=== PATIENT | female | born 1955 | race Caucasian/White ===

== ENCOUNTER → 2016-11-15 | Outpatient (CLI) | payer MEDICARE ==
[~2016-11-15] MED LIST: ALBUTEROL-200 PUFFS/ IH; ALBUTEROL2.5 MG/NEB IH; CEFTIN500 MG PO; FLEXERIL5 MG PO; IPRATROPIUM BROM3 M1 IH; LAMICTAL 100 M100 MG PO; LOTRIMIN 0.1% C15 GM EX; MOTRIN800 MG PO; NORFLEX100 MG PO; PROZAC 20MG CAP20 MG PO; WELLBUTRIN 100100 M1 PO
--- NOTE | 2016-11-15 11:40 | RADIOLOGY REPORT PS360 ---
LUMBAR PUNCTURE HISTORY: COGNITIVE DECCLINE COMPARISON: None TECHNIQUE: Following obtaining informed consent under local anesthesia with 1% lidocaine and under fluoroscopic guidance a 20-gauge spinal needle was inserted into the L3-L4 interspace. Approximately 12 cc of clear CSF was obtained and sent to laboratory for analysis. In addition, 2 mL of fluid was obtained in a special additional 2 been sent to the laboratory with the rest of the sample. The patient tolerated the procedure well without evidence of immediate complication IMPRESSION: Successful fluoroscopy guided lumbar puncture without complications
[2016-11-17 09:59] LABS: CSF APPEARANCE CLEAR
== END ==
LOC: RAD 10:22
PROVIDERS: Psychiatry & Neurology Neurology
DX: R41.81 Age-related cognitive decline (principal)